=== PATIENT | male | born 1970 | race Caucasian/White ===

== ENCOUNTER 2019-08-25 11:47 | Emergency (ER) | payer BC ==
--- NOTE | 2019-08-25 13:23 | EDPHYS ---
Physician Documentation [facility] Name: Mk Vences Age: 49 yrs Sex: Male : 1970 Arrival Date: 08/25/2019 Time: 11:52 Bed 7 Private MD: Shaw Richards ED Physician Luc Mcdowell HPI: 08/24 13:46 This 49 yrs old Male presents to ER via Ambulatory with complaints of Passed kdr out yesterday. 13:46 The patient related to the nursing staff a triage that he had passed out at work kdr yesterday. 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 He reports that this had not happened before. He feels fine today. He reports that he had stopped his Eliquis about 2 years ago since he was drinking at that time and felt that he was keeping his blood think with the alcohol. However, He quit smoking last March and stopped drinking about two months ago. Now he is concerned that he may have a blood clot in his lungs. I assured him that he did not have any ss/s of a PE at this time. Onset: The symptoms/episode began/occurred at an unknown time. Severity of symptoms: At their worst the symptoms were moderate incapacitating in the emergency department the symptoms. The patient has not experienced similar symptoms in the past. The patient has not recently seen a physician. Historical: - Allergies: 12:24 No Known Allergies; jl7 - Home Meds: 12:24 Eliquis 5 mg oral tab [Active]; Januvia 100 mg oral tab [Active]; bupropion HCl 100 mg jl7 Oral tab [Active]; - PMHx: 12:24 Diabetes - NIDDM; PE; Anxiety; jl7 - PSHx: 12:24 None; jl7 - Immunization history:: Adult Immunizations not up to date. - Social history:: Smoking status: Patient/guardian denies using tobacco, the patient reports quitting approximately 1 years ago. ROS: 13:46 Constitutional: Negative for fever, chills, and weight loss, Eyes: Negative for injury, kdr pain, redness, and discharge, ENT: Negative for injury, pain, and discharge, Neck: Negative for injury, pain, and swelling, Cardiovascular: Negative for chest pain, palpitations, and edema, Respiratory: Negative for shortness of breath, cough, wheezing, and pleuritic chest pain, Abdomen/GI: Negative for abdominal pain, nausea, vomiting, diarrhea, and constipation, Back: Negative for injury and pain, : Negative for injury, bleeding, discharge, and swelling, MS/Extremity: Negative for injury and deformity, Skin: Negative for injury, rash, and discoloration, Psych: Negative for depression, anxiety, suicide ideation, homicidal ideation, and hallucinations, Allergy/Immunology: Negative for hives, rash, and allergies, Endocrine: Negative for neck swelling, polydipsia, polyuria, polyphagia, and marked weight changes, Hematologic/Lymphatic: Negative for swollen nodes, abnormal bleeding, and unusual bruising. 13:46 Neuro: Positive for Possible syncope vs falling asleep in his truck. Exam: 13:46 Constitutional: This is a well developed, well nourished patient who is awake, alert, kdr and in no acute distress. Head/Face: Normocephalic, atraumatic. Eyes: Pupils equal round and reactive to light, extra-ocular motions intact. Lids and lashes normal. Conjunctiva and sclera are non-icteric and not injected. Cornea within normal limits. Periorbital areas with no swelling, redness, or edema. Neck: Trachea midline, no thyromegaly or masses palpated, and no cervical lymphadenopathy. Supple, full range of motion without nuchal rigidity, or vertebral point tenderness. No Meningismus. Chest/axilla: Normal chest wall appearance and motion. Nontender with no deformity. No lesions are appreciated. Cardiovascular: Regular rate and rhythm with a normal S1 and S2. No gallops, murmurs, or rubs. Normal PMI, no JVD. No pulse deficits. Respiratory: Lungs have equal breath sounds bilaterally, clear to auscultation and percussion. No rales, rhonchi or wheezes noted. No increased work of breathing, no retractions or nasal flaring. Abdomen/GI: Soft, non-tender, with normal bowel sounds. No distension or tympany. No guarding or rebound. No evidence of tenderness throughout. Back: No spinal tenderness. No costovertebral tenderness. Full range of motion. Skin: Warm, dry with normal turgor. Normal color with no rashes, no lesions, and no evidence of cellulitis. MS/ Extremity: Pulses equal, no cyanosis. Neurovascular intact. Full, normal range of motion. Psych: Awake, alert, with orientation to person, place and time. Behavior, mood, and affect are within normal limits. 13:46 Neuro: The patient questions whether he may have had a syncopal episode . Vital Signs: 12:22 BP 150 / 96; Pulse 74; Resp 16; Temp 97.1; Pulse Ox 98% ; Weight 89.36 kg; Height 6 ft. jl7 (182.88 cm); Pain 0/10; 12:43 BP 150 / 96; Pulse 82; Resp 16; Temp 97.5(TE); Pulse Ox 98% on R/A; mh5 12:22 Body Mass Index 26.72 (89.36 kg, 182.88 cm) jl7 MDM: 13:21 Patient medically screened. kdr 13:46 Data reviewed: vital signs, nurses notes, lab test result(s), radiologic studies. kdr Administered Medications: No medications were administered Disposition: 13:18 medication refill. kdr Disposition: 08/25/19 13:21 Discharged to Home. Impression: Medication Refill. - Condition is Stable. - Medication Reconciliation Form, Thank You Letter form. - Follow up: Shaw Richards MD; When: 2 - 3 days; Reason: If symptoms return, Further diagnostic work-up, Recheck today's complaints, Continuance of care, Re-evaluation by your physician. - Problem is an ongoing problem. - Symptoms are unchanged. Signatures: Luc Mcdowell MD MD kdr Servando Juarez RN RN jl7 Corrections: (The following items were deleted from the chart) 13:32 13:21 08/25/2019 13:21 Discharged to Home. Impression: Medication Refill. Condition is jl7 Stable. Forms are Medication Reconciliation Form, Thank You Letter, Antibiotic Education, Prescription Opioid Use. Follow up: Shaw Richards; When: 2 - 3 days; Reason: If symptoms return, Further diagnostic work-up, Recheck today's complaints, Continuance of care, Re-evaluation by your physician. Problem is an ongoing problem. Symptoms are unchanged. kdr
--- NOTE | 2019-08-25 13:23 | ER ---
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 Pt denies any complaints at this time. 11:54 Onset of symptoms was August 2019. aa5 11:54 Acuity: NADEEM 3 aa5 11:54 Method Of Arrival: Ambulatory aa5 12:22 Coronavirus screen: Proceed with normal triage. Ebola Screen: No symptoms or risks jl7 identified at this time. Initial Sepsis Screen: Does the patient meet any 2 criteria? No. Patient's initial sepsis screen is negative. Does the patient have a suspected source of infection? No. Patient's initial sepsis screen is negative. Risk Assessment: Do you want to hurt yourself or someone else? Patient reports no desire to harm self or others. Triage Assessment: 12:00 General: Appears in no apparent distress. uncomfortable, Behavior is calm, cooperative, jl7 appropriate for age. Pain: Denies pain. EENT: No signs and/or symptoms were reported regarding the EENT system. Neuro: Level of Consciousness is awake, alert, obeys commands, Oriented to person, place, time, situation, Denies weakness blurred vision dizziness, numbness headache. Cardiovascular: Denies chest pain, diaphoresis, fatigue, lightheadedness, nausea, palpitations, shortness of breath, Patient's skin is warm and dry. Respiratory: Airway is patent Respiratory effort is even, unlabored, Respiratory pattern is regular, symmetrical, Denies cough, shortness of breath. GI: No signs and/or symptoms were reported involving the gastrointestinal system. : No signs and/or symptoms were reported regarding the genitourinary system. Derm: Skin is pink, warm \\T\\ dry. Historical: - Allergies: 12:24 No Known Allergies; jl7 - Home Meds: 12:24 Eliquis 5 mg oral tab [Active]; Januvia 100 mg oral tab [Active]; bupropion HCl 100 mg jl7 Oral tab [Active]; - PMHx: 12:24 Diabetes - NIDDM; PE; Anxiety; jl7 - PSHx: 12:24 None; jl7 - Immunization history:: Adult Immunizations not up to date. - Social history:: Smoking status: Patient/guardian denies using tobacco, the patient reports quitting approximately 1 years ago. Screenin:26 Abuse screen: Denies threats or abuse. Denies injuries from another. Nutritional jl7 screening: No deficits noted. Tuberculosis screening: No symptoms or risk factors identified. Fall Risk None identified. Assessment: 12:26 General: see triage assessment. jl7 Vital Signs: 12:22 BP 150 / 96; Pulse 74; Resp 16; Temp 97.1; Pulse Ox 98% ; Weight 89.36 kg; Height 6 ft. jl7 (182.88 cm); Pain 0/10; 12:43 BP 150 / 96; Pulse 82; Resp 16; Temp 97.5(TE); Pulse Ox 98% on R/A; mh5 12:22 Body Mass Index 26.72 (89.36 kg, 182.88 cm) jl7 ED Course: 11:52 Patient arrived in ED. mr 11:53 Shaw Richards MD is Private Physician. mr 11:54 Arm band placed on. aa5 11:56 Luc Mcdowell MD is Attending Physician. kdr 11:56 Servando Juarez RN is Primary Nurse. jl7 12:00 Patient has correct armband on for positive identification. Placed in gown. Bed in low jl7 position. Call light in reach. Side rails up X 1. quality assurance monitor body on. Pulse ox on. NIBP on. 12:02 Triage completed. aa5 13:20 Shaw Richards MD is Referral Physician. kdr 13:32 No provider procedures requiring assistance completed. Patient did not have IV access jl7 during this emergency room visit. Administered Medications: No medications were administered Outcome: 13:21 Discharge ordered by . kdr 13:30 Medical screen evaluation completed per provider. Patient declined treatment. jl7 13:30 Condition: stable 13:30 Discharge instructions given to patient, Instructed on discharge instructions, follow up and referral plans. Demonstrated understanding of instructions. 13:32 Patient left the ED. jl7 Signatures: Luc Mcdowell MD MD [facility] Tiki Mayorga Audri, RN RN [email or web address] Marianna Louis Jahala, RN RN jl7
[2019-08-25 13:40] VITALS: BP 150/96; O2SAT 98
[2019-08-25 13:42] VITALS: TEMP 97.5
== END 2019-08-25 13:32 | disposition home or self-care (01) ==
LOC: ER 11:47
DX: Z76.0 Encounter for issue of repeat prescription (principal); E11.9 Type 2 diabetes mellitus without complications; F41.9 Anxiety disorder, unspecified; Z79.02 Long term (current) use of antithrombotics/antiplatelets
CPT/HCPCS: 99284